=== PATIENT | female | born 1970 | race Two or more races ===

== ENCOUNTER 2016-12-22 15:49 | Inpatient (IN) | payer MEDICAID ==
[~2016-12-22] VITALS: Ht 154.9 cm; Wt 54.2 kg
[2016-12-22] MEDS ORDERED: ZOLPIDEM TARTRATE 10 MG TABLET PO PRN (19:30)
[2016-12-22] MEDS ORDERED: LORazepam 2 MG TABLET PO PRN (19:30)
[2016-12-22] MEDS ORDERED: HALOPERIDOL 5 MG TABLET PO PRN (19:30)
[2016-12-22 19:44] VITALS: BP 135/71
[2016-12-22] MEDS ORDERED: MAG HYDROX/AL HYDROX/SIMETH ES 30 ML SUSPENSION UDCUP PO PRN (20:00)
[2016-12-22] MEDS ORDERED: LOPERAMIDE HCL 2 MG CAPSULE PO PRN (20:00)
[2016-12-22] MEDS ORDERED: PNEUMOCOCCAL VACCINE POLYVALENT 0.5 ML VIAL [PPSV23] IM ONE (20:00)
[2016-12-22] MEDS ORDERED: ACETAMINOPHEN 325 MG TABLET PO PRN (20:00)
[2016-12-23 06:45] LABS: BASOPHILS # (AUTO) 0.03 K/uL (0.00-0.20); BASOPHILS % (AUTO) 0.6 % (0.0-2.0); EOSINOPHILS # (AUTO) 0.16 K/uL (0.00-0.70); EOSINOPHILS % (AUTO) 2.97 % (1.0-6.0); HEMATOCRIT 39.8 % (36-46); HEMOGLOBIN 13.5 g/dL (12.0-16.0); LYMPHOCYTES # (AUTO) 1.7 K/uL (1.0-4.8); LYMPHOCYTES % (AUTO) 32.7 % (22.0-44.0); MEAN CORPUSCULAR HGB CONC 33.9 G/dL (31.0-37.0); MEAN CORPUSCULAR VOLUME 94 fL (80-100); MONOCYTES # (AUTO) 0.5 K/uL (0.1-1.0); NEUTROPHILS # (AUTO) 2.8 K/uL (1.8-7.7); NEUTROPHILS % (AUTO) 53.7 % (40.0-70.0); PLATELET COUNT (AUTO) 234 K/uL (150-450); RED BLOOD CELL COUNT(AUTO) 4.21 MIL/uL (4.00-5.20); RED CELL DISTRIBUTION WIDTH 12.7 % (11.5-14.5); WHITE BLOOD COUNT (AUTO) 5.2 K/uL (4.5-11.0)
[2016-12-23 07:47] LABS: ALANINE AMINOTRANSFERASE 27 U/L (12-78); ALBUMIN 2.9 g/dL (3.4-5.0); ANION GAP 7 mmol/L (8-16); ASPARTATE AMINOTRANSFERASE 17 U/L (15-37); BILIRUBIN,TOTAL 0.4 mg/dL (0.1-1.0); CALCIUM, TOTAL 8.4 mg/dL (8.8-10.5); CARBON DIOXIDE 28 mmol/L (22-29); CHLORIDE 104 mmol/L (98-107); CREATININE 0.59 mg/dL (0.60-1.30); GLOMERULAR FILTR. RATE CALC > 60 mL/min (>60); POTASSIUM 4.2 mmol/L (3.5-5.1); SODIUM SERUM 139 mmol/L (136-145); TOTAL PROTEIN, SERUM 6.1 g/dL (6.4-8.2); UREA NITROGEN, BLOOD 16 mg/dL (7-18)
[2016-12-23 09:13] VITALS: BP 123/84
[2016-12-23 09:56] LABS: APPEARANCE,URINE CLOUDY (CLEAR); GLUCOSE, URINE (UA) NEGATIVE (NEGATIVE); KETONES,URINE NEGATIVE (NEGATIVE); LEUKOCYTE ESTERASE ,URINE SMALL (NEGATIVE); OCCULT BLOOD,URINE NEGATIVE (NEGATIVE); PH,URINE 5.5 (5.0-8.0); PROTEIN,URINE NEGATIVE (NEGATIVE)
[2016-12-23 10:12] LABS: ADD UA MICROSCOPIC YES
[2016-12-23 10:17] LABS: RBC,URINE None Seen /HPF (0-2); SQUAMOUS EPITHELIAL CELL,UR Few /LPF (None Seen)
[2016-12-23] MEDS: SERTRALINE HCL 50 MG TABLET PO SCH (12:27)
[2016-12-23] MEDS: RisperiDONE 1 MG TABLET PO SCH ×2 (12:28→16:25)
[2016-12-23 16:33] VITALS: BP 140/72
[2016-12-24 08:00] VITALS: BP 120/60
[2016-12-24] MEDS: SERTRALINE HCL 50 MG TABLET PO SCH (08:58)
[2016-12-24] MEDS: MAGNESIUM HYDROXIDE SUSPENSION 30 ML UDCUP PO PRN (08:59)
[2016-12-24] MEDS: RisperiDONE 1 MG TABLET PO SCH ×2 (09:02→17:42)
[2016-12-24 17:21] VITALS: BP 111/68
[2016-12-25 08:00] VITALS: BP 133/67
[2016-12-25] MEDS: SERTRALINE HCL 50 MG TABLET PO SCH (08:55)
[2016-12-25] MEDS: RisperiDONE 1 MG TABLET PO SCH (08:55)
[2016-12-25] MEDS: MAGNESIUM HYDROXIDE SUSPENSION 30 ML UDCUP PO PRN (09:22)
[2016-12-25] MEDS ORDERED: RISP1 PO (13:30)
[2016-12-25] MEDS ORDERED: SERT50TA12 PO (13:30)
== END 2016-12-25 15:25 | disposition home or self-care (01) | DRG 750 ==
LOC: 3EI 18:30
PROVIDERS: ADMIT Psychiatry & Neurology Child & Adolescent Psychiatry; ATTEND Psychiatry & Neurology Child & Adolescent Psychiatry
DX: F25.1 Schizoaffective disorder, depressive type (principal); N39.0 Urinary tract infection, site not specified; F41.9 Anxiety disorder, unspecified; F19.90 Other psychoactive substance use, unspecified, uncomplicated; F15.90 Other stimulant use, unspecified, uncomplicated; Z88.0 Allergy status to penicillin; Z72.89 Other problems related to lifestyle; Z71.41 Alcohol abuse counseling and surveillance of alcoholic; Z71.51 Drug abuse counseling and surveillance of drug abuser; Z79.899 Other long term (current) drug therapy; Z28.21 Immunization not carried out because of patient refusal
CPT/HCPCS: 87086

== ENCOUNTER 2017-02-14 02:01 | Inpatient (IN) | payer MEDICAID ==
[~2017-02-14] VITALS: Ht 154.9 cm; Wt 58.1 kg
[~2017-02-14 02:01] MED LIST: RISP1 PO; SERT50TA12 PO
[2017-02-14] MEDS ORDERED: ZOLPIDEM TARTRATE 10 MG TABLET PO PRN (03:15)
[2017-02-14] MEDS ORDERED: HALOPERIDOL 5 MG TABLET PO PRN (03:15)
[2017-02-14] MEDS ORDERED: LORazepam 1 MG TABLET PO PRN (03:15)
[2017-02-14 03:33] VITALS: BP 131/75
[2017-02-14 03:53] VITALS: BP 131/75
[2017-02-14] MEDS ORDERED: PNEUMOCOCCAL VACCINE POLYVALENT 0.5 ML VIAL [PPSV23] IM ONE (04:15)
[2017-02-14 08:22] VITALS: BP 132/70
[2017-02-14 08:22] LABS: HEMOGLOBIN A1C 5.2 % (4.5-6.2)
[2017-02-14 08:28] LABS: ALANINE AMINOTRANSFERASE 50 U/L (12-78); ALBUMIN 2.8 g/dL (3.4-5.0); ANION GAP 5 mmol/L (8-16); ASPARTATE AMINOTRANSFERASE 29 U/L (15-37); BILIRUBIN,TOTAL 0.2 mg/dL (0.1-1.0); CALCIUM, TOTAL 8.7 mg/dL (8.8-10.5); CARBON DIOXIDE 30 mmol/L (22-29); CHLORIDE 103 mmol/L (98-107); CREATININE 0.55 mg/dL (0.60-1.30); GLOMERULAR FILTR. RATE CALC > 60 mL/min (>60); SODIUM SERUM 138 mmol/L (136-145); THYROID STIMULATING HORMONE 0.72 uIU/mL (0.36-3.74); TOTAL PROTEIN, SERUM 5.8 g/dL (6.4-8.2); UREA NITROGEN, BLOOD 13 mg/dL (7-18)
[2017-02-14 16:19] VITALS: BP 127/73
[2017-02-14] MEDS: RisperiDONE 0.5 MG TABLET PO SCH (17:00)
[2017-02-15 06:55] VITALS: BP 110/65
[2017-02-15 08:31] VITALS: BP 115/54
[2017-02-15 08:37] LABS: BASOPHILS % (AUTO) 0.5 % (0.0-2.0); EOSINOPHILS % (AUTO) 1.1 % (1.0-6.0); HEMATOCRIT 39.6 % (36-46); HEMOGLOBIN 13.2 g/dL (12.0-16.0); LYMPHOCYTES # (AUTO) 1.1 K/uL (1.0-4.8); LYMPHOCYTES % (AUTO) 12.4 % (22.0-44.0); MEAN CORPUSCULAR HEMOGLOBIN 32.2 pg (26.0-34.0); MEAN CORPUSCULAR HGB CONC 33.4 G/dL (31.0-37.0); MEAN CORPUSCULAR VOLUME 97 fL (80-100); MONOCYTES # (AUTO) 0.4 K/uL (0.1-1.0); MONOCYTES % (AUTO) 4.9 % (2.0-9.0); NEUTROPHILS % (AUTO) 81.1 % (40.0-70.0); PLATELET COUNT (AUTO) 258 K/uL (150-450); RED CELL DISTRIBUTION WIDTH 12.7 % (11.5-14.5); WHITE BLOOD COUNT (AUTO) 8.6 K/uL (4.5-11.0)
[2017-02-15] MEDS: SERTRALINE HCL 50 MG TABLET PO SCH (08:37)
[2017-02-15] MEDS: RisperiDONE 0.5 MG TABLET PO SCH ×2 (08:37→16:32)
[2017-02-15 16:36] VITALS: BP 108/61
[2017-02-15] MEDS ORDERED: MAGNESIUM HYDROXIDE SUSPENSION 30 ML UDCUP PO PRN (17:30)
[2017-02-16 03:15] VITALS: BP 111/69
[2017-02-16] MEDS: SERTRALINE HCL 50 MG TABLET PO SCH (08:11)
[2017-02-16] MEDS: RisperiDONE 0.5 MG TABLET PO SCH ×2 (08:11→16:27)
[2017-02-16 09:15] VITALS: BP 110/68
[2017-02-16 16:15] VITALS: BP 116/66
[2017-02-17 06:19] VITALS: BP 123/76
[2017-02-17 08:44] VITALS: BP 120/67
[2017-02-17] MEDS: SERTRALINE HCL 50 MG TABLET PO SCH (10:20)
[2017-02-17] MEDS: RisperiDONE 0.5 MG TABLET PO SCH ×2 (10:20→16:35)
[2017-02-17 16:00] VITALS: BP 128/73
[2017-02-18 06:35] VITALS: BP 102/73
[2017-02-18 08:19] VITALS: BP 124/77
[2017-02-18] MEDS: SERTRALINE HCL 50 MG TABLET PO SCH (08:58)
[2017-02-18] MEDS: RisperiDONE 0.5 MG TABLET PO SCH ×2 (08:58→16:48)
[2017-02-18 16:13] VITALS: BP 120/65
[2017-02-19 00:48] VITALS: BP 110/68
[2017-02-19 08:41] VITALS: BP 136/72
[2017-02-19] MEDS: RisperiDONE 0.5 MG TABLET PO SCH (09:00)
[2017-02-19] MEDS: SERTRALINE HCL 50 MG TABLET PO SCH (09:00)
== END 2017-02-19 13:15 | disposition home or self-care (01) | DRG 750 ==
LOC: EDSTATUS 02:02 → B2S 03:23
PROVIDERS: ADMIT Psychiatry & Neurology Child & Adolescent Psychiatry; ATTEND Psychiatry & Neurology Child & Adolescent Psychiatry
PROC: 3E0234Z Introduction of Serum, Toxoid and Vaccine into Muscle, Percutaneous Approach (ICD-10-PCS; principal; 2017-02-14)
DX: F25.1 Schizoaffective disorder, depressive type (principal); F15.20 Other stimulant dependence, uncomplicated; R45.851 Suicidal ideations; I10 Essential (primary) hypertension; L30.9 Dermatitis, unspecified; F41.9 Anxiety disorder, unspecified; F10.10 Alcohol abuse, uncomplicated; F17.210 Nicotine dependence, cigarettes, uncomplicated; Z91.5 Personal history of self-harm; Z59.0 Homelessness; Z88.0 Allergy status to penicillin; Z23 Encounter for immunization; Z71.41 Alcohol abuse counseling and surveillance of alcoholic; Z71.51 Drug abuse counseling and surveillance of drug abuser
CPT/HCPCS: 83036; 84439; 84443; 87389; 90471; G0480